=== PATIENT | male | born 1940 ===

== ENCOUNTER 2024-11-08 20:57 | Emergency (ER) | payer SELFPAY ==
[~2024-11-08] VITALS: Ht 172.7 cm; Wt 83.9 kg
[2024-11-08] MEDS ORDERED: Midazolam HCL 50 MG in NS 40 ML IV PRN (21:05)
[2024-11-08 21:23] LABS: Hematocrit 24.6 % (37.0-53.0); Hemoglobin 8.6 g/dL (13.5-17.5); Mean Corpuscular HGB Conc 35.0 g/dL (31.5-36.5); Mean Corpuscular Volume 89 fL (80-100); NRBC ABSOLUTE 0.00 K/mm3 (0.00-0.02); NRBC Auto 0.0 /100 WBC (0.0-0.2); Platelet Count 269 K/mm3 (150-400); RDW Coefficient Variation 13.4 % (11.7-14.2); RDW Standard Deviation 43.9 fL (35.1-46.3)
[2024-11-08 21:29] LABS: Prothrombin Time Results 15.1 Sec (9.7-11.5)
[2024-11-08 21:33] LABS: Alanine Aminotransfer (ALT/SGP 19.0 U/L (12-78); Albumin, Blood 2.7 g/dL (3.4-5.0); Albumin/Globulin Ratio 0.7 (0.8-1.8); Anion Gap 10.0 mmol/L (3-11); Aspartate Aminotrans (AST/SGOT 32.0 U/L (12-37); Bilirubin, Total 1.0 mg/dL (0.1-1.0); Blood Urea Nitrogen 18.0 mg/dL (8-24); CO2, Blood 22.0 mmol/L (21-32); Calcium, Blood 8.4 mg/dL (8.5-10.1); Chloride, Blood 110.0 mmol/L (98-108); Creatinine, Blood 1.73 mg/dL (0.60-1.20); Globulin, Blood 4.0 g/dL (2.2-4.0); Glucose, Blood 328.0 mg/dL (70-99); Potassium, Blood 4.0 mmol/L (3.5-5.5); Sodium, Blood 138.0 mmol/L (136-145); Total Protein, Blood 6.7 g/dL (6.4-8.2)
[2024-11-08 21:34] LABS: BAND PERCENT MAN 12 % (0-8); BASOPHILS ABSOLUTE MAN 0.00 K/mm3 (0.00-0.23); BASOPHILS PERCENT MAN 0 % (0-2); EOSINOPHILS ABSOLUTE MAN 0.00 K/mm3 (0.00-0.68); EOSINOPHILS PERCENT MAN 0 % (0-6); LYMPHOCYTES ABSOLUTE MAN 2.96 K/mm3 (0.84-5.20); LYMPHOCYTES PERCENT MAN 10 % (21-46); MONOCYTES ABSOLUTE MAN 0.89 K/mm3 (0.16-1.47); MONOCYTES PERCENT MAN 3 % (4-13); NEUTROPHILS ABSOLUTE MAN 25.82 K/mm3 (1.96-9.15); SEG NEUTROPHILS PERCENT MAN 75 % (41-73)
== END 2024-11-09 01:45 ==
LOC: ER 20:57
PROVIDERS: Emergency Medicine
DX: S01.84XA Puncture wound with foreign body of other part of head, initial encounter (principal)
CPT/HCPCS: 70450; 70496; 70498; 71045; 72125; 80053; 82550; 83605; 84484; 85025; 85610; 93005; 93010; 94002; 99285-25; J2250; J3010; Q9967